=== PATIENT | female | born 1980 | race Caucasian/White ===

== ENCOUNTER 2017-08-28 13:23 | Emergency (ER) | payer BC, OTHER ==
[2017-08-28 13:56] VITALS: BP 156/102; PULSE 75; TEMP 97.9; BMI 35.2
[2017-08-28 14:32] LABS: BASO % 0.6 % (0-2.0); EOS % 0.2 % (0-4.5); HEMATOCRIT 37.7 % (32.4-45.2); HEMOGLOBIN 12.3 GM/dl (10.7-15.3); LYMPH % 16.4 % (8-40); MCH 26.4 pg (25.7-33.7); MCHC 32.8 g/dl (32.0-36.0); MEAN CELL VOLUME 80.5 fl (80-96); MEAN PLT VOLUME 8.3 fl (7.5-11.1); MONO % 6.6 % (3.8-10.2); NEUT % 76.2 % (42.8-82.8); PLATELET COUNT 274 K/MM3 (134-434); RBC 4.68 M/mm3 (3.60-5.2); RDW 14.2 % (11.6-15.6); WHITE BLOOD COUNT 7.3 K/mm3 (4.0-10.8)
--- NOTE | 2017-08-28 14:37 | PDOC ---
History of Present Illness - General Chief Complaint: Pain Stated Complaint: ABD PAIN Time Seen by Provider: 08/28/17 14:36 - History of Present Illness Initial Comments: 08/28/17 17:25 Chief complaint: Abdominal pain History of present illness: Patient complains of epigastric pain for about 1 week, worse for the last 2 days. Mild nausea, but no vomiting. Normal bowel movements. She is tolerating by mouth fluids but her appetite is decreased. She has a gastric band which is been in place for 7 years and is followed by Dr. Camacho, who sends her in for evaluation of slippage of the band. Review of systems: As above. In addition, no hematemesis melena or bloody stool. No chest pain, shortness of breath, visual or focal neurologic symptoms, urinary tract symptoms. She is having some spotting which is a first bleeding since delivery of her baby 2 months ago. Past medical history: Gastric band 7 years ago. No other abdominal surgery or GI illnesses. 3 para 3, 2-month-old baby. Social/family history reviewed and noncontributory Physical exam: Alert and oriented well-developed well-nourished no acute distress cooperative Afebrile, vital signs normal No pallor or icterus. PERRLA, ENT clear Neck supple without bruit mass or nodes Chest clear CV regular without murmur rub or gallop Abdomen nondistended. Bowel sounds normal. Soft without mass or organomegaly. There is mild tenderness to deep palpation in the epigastrium and right upper quadrant. Toribio sign is negative. There is no guarding or rebound Neurological intact Extremities no CCE Skin clear, no rash, adequate turgor and wet mucous membranes Impression: Viral gastroenteritis versus dyspepsia/peptic ulcer disease versus gallbladder disease versus slippage of the gastric band Plan: As requested by her surgeon, flat plate the abdomen and CT, with further evaluation and treatment depending on results. Past History - Past Medical History Allergies/Adverse Reactions: Allergies Allergy/AdvReac Type Severity Reaction Status Date / Time No Known Allergies Allergy Verified 08/28/17 13:50 Home Medications: Ambulatory Orders Acetaminophen W/ Codeine #3 [Tylenol # 3] 1 - 2 combo PO Q4H PRN #20 tablet MDD 8 08/28/17 Amox-Tr/K Cl [Augmentin 875-125mg Tablet -] 1 tab PO BID #14 tablet 03/21/18 COPD: No - Surgical History Gastric Stapling: Yes (LAPBAND) - Suicide/Smoking/Psychosocial Hx Smoking History: Never smoked Have you smoked in the past 12 months: No Information on smoking cessation initiated: No Hx Alcohol Use: No Drug/Substance Use Hx: No Substance Use Type: None *Physical Exam - Vital Signs Last Vital Signs Temp Pulse Resp BP Pulse Ox 97.9 F 75 20 156/102 99 08/28/17 13:24 08/28/17 13:24 08/28/17 13:24 08/28/17 13:24 08/28/17 13:24 ED Treatment Course - LABORATORY CBC & Chemistry Diagram: 08/28/17 14:13 08/28/17 14:14 - RADIOLOGY Radiology Studies Ordered: Category Date Time Status ABDOMEN-KUB FLAT PLATE [RAD] Stat Radiology 08/28/17 14:09 Ordered Progress Note - Progress Note Progress Note: Patient remains afebrile, clinically and hemodynamically stable, in no significant pain. White count is normal. LFTs and bilirubin are normal. Abdominal exam: Soft without mass or organomegaly. Mild tenderness epigastrium and right upper quadrant unchanged. No guarding or rebound. No Toribio sign Discussed CT findings with her surgeon . He agrees that the likely etiology of her pain is acute cholecystitis. She does not appear to be toxic or septic. She will be managed as an outpatient with antibiotics and analgesics and he will discuss elective cholecystectomy. Patient fully ambulatory and in no distress upon discharge with her to follow-up as directed. She states that she will return to the ER as directed if her symptoms worsen. *DC/Admit/Observation/Transfer Diagnosis at time of Disposition: Cholecystitis - Discharge Dispostion Disposition: HOME Condition at time of disposition: Stable Admit: No - Prescriptions Prescriptions: Acetaminophen W/ Codeine #3 [Tylenol # 3] 1 - 2 combo PO Q4H PRN #20 tablet MDD 8 PRN Reason: Pain Amox-Tr/K Cl [Augmentin 875-125mg Tablet -] 1 tab PO BID #14 tablet - Referrals Referrals: Brian Kendrick [Staff Physician] - 3 days - Patient Instructions Printed Discharge Instructions: DI for Cholecystitis Additional Instructions: Return to the emergency room if symptoms worsen. Especially if there is increased pain, vomiting, fever or chills There is also blood in your urine which is probably from spotting. The urine culture was sent and takes 2 days for results. If there is any sign of infection , he will need further treatment. However, the medication the ER taking for your gallbladder should be effective against any urinary tract infection that may be present. - Post Discharge Activity
[2017-08-28] MEDS ORDERED: FAMOTIDINE IV 20 MG/12 ML VIAL IVPUSH ONE (14:42)
[2017-08-28] MEDS ORDERED: KETOROLAC TROMETHAMINE 30 MG/1 ML VIAL IVPUSH ONE (14:42)
[2017-08-28] MEDS ORDERED: SODIUM CHLORIDE 1,000 ML IV STA (14:43)
[2017-08-28] MEDS ORDERED: KETOROLAC TROMETHAMINE 30 MG/1 ML VIAL ONE (14:48)
[2017-08-28] MEDS ORDERED: FAMOTIDINE 20 MG/50 ML IVPB 20 MG/50 ML MG IVPB ONE (14:49)
[2017-08-28 14:54] LABS: ALBUMIN 3.9 g/dl (3.5-5.0); ALK PHOS 82 U/L (32-92); ANION GAP 3 (8-16); BILIRUBIN,TOTAL 0.5 mg/dl (0.2-1.0); BLOOD UREA NITROGEN 9 mg/dl (7-18); CHLORIDE 104 mmol/L (98-107); CO2 26 mmol/L (22-28); GLUCOSE,RANDOM 105 mg/dl (74-106); POTASSIUM 4.2 mmol/L (3.5-5.1); SGOT/AST 31 U/L (10-42); SGPT/ALT 40 U/L (10-40); SODIUM 133 mmol/L (136-145); TOT PROT 6.9 g/dl (6.4-8.3)
[2017-08-28 15:21] LABS: URINE APPEARANCE Cloudy; URINE BILIRUBIN 1+ (NEGATIVE); URINE GLUCOSE (UA) Negative (NEGATIVE); URINE KETONE 2+ (NEGATIVE); URINE NITRITE Negative (NEGATIVE)
[2017-08-28 15:23] LABS: HCG,QUALITATIVE URINE NEGATIVE; URINE BLOOD 3+ (NEGATIVE); URINE LEUK ESTERASE TRACE (NEGATIVE); URINE PROTEIN 2+ (NEGATIVE)
[2017-08-28 15:24] LABS: URINE COLOR YELLOW
[2017-08-28 15:29] LABS: CREATININE < 0.8 mg/dl (0.6-1.3)
[2017-08-28 17:05] LABS: URINE RBC 15-20 /hpf (0-3)
[2017-08-28 17:06] LABS: EPI CELLS FEW /HPF; URINE BACTERIA FEW /hpf (NEGATIVE)
--- NOTE | 2017-08-29 02:47 | PDOC ---
*Physical Exam - Vital Signs Last Vital Signs Temp Pulse Resp BP Pulse Ox 97.9 F 75 20 156/102 99 08/28/17 13:24 08/28/17 13:24 08/28/17 13:24 08/28/17 13:24 08/28/17 13:24 ED Treatment Course - LABORATORY CBC & Chemistry Diagram: 08/28/17 14:13 08/28/17 14:14 - ADDITIONAL ORDERS Additional order review: Laboratory Results 08/28/17 08/28/17 08/28/17 14:14 14:14 14:14 Sodium 133 L Potassium 4.2 Chloride 104 Carbon Dioxide 26 Anion Gap 3 L BUN 9 Creatinine < 0.8 Creat Clearance w eGFR > 60 Random Glucose 105 Lactic Acid 1.1 Calcium 9.0 Total Bilirubin 0.5 AST 31 ALT 40 Alkaline Phosphatase 82 Total Protein 6.9 Albumin 3.9 Urine Color Yellow Urine Appearance Cloudy Urine pH 7.0 Ur Specific [place] 1.025 Urine Protein 2+ H Urine Glucose (UA) Negative Urine Ketones 2+ H Urine Blood 3+ H Urine Nitrite Negative Urine Bilirubin 1+ H Urine Urobilinogen 1.0 Ur Leukocyte Esterase Trace H Urine RBC 15-20 Urine WBC 8-10 Ur Epithelial Cells Few Urine Bacteria Few Urine HCG, Qual Negative 08/28/17 14:13 RBC 4.68 MCV 80.5 MCHC 32.8 RDW 14.2 MPV 8.3 Neutrophils % 76.2 Lymphocytes % 16.4 Monocytes % 6.6 Eosinophils % 0.2 Basophils % 0.6 - Medications Given in the ED: ED Medications Discontinued Medications Generic Name Dose Route Start Last Admin Trade Name Sathya PRN Reason Stop Dose Admin Famotidine 20 mg in 12 mls @ 144 mls/hr 08/28/17 14:42 08/28/17 14:52 Pepcid 20 Mg/12 Ml Push IVPUSH 08/28/17 14:46 144 mls/hr ONCE ONE Administration Sodium Chloride 1,000 mls @ 1,000 mls/hr 08/28/17 14:43 08/28/17 14:47 Normal Saline - IV 08/28/17 15:42 1,000 mls/hr ASDIR STA Administration Ketorolac Tromethamine 30 mg 08/28/17 14:42 08/28/17 14:53 Toradol Injection - IVPUSH 08/28/17 14:43 30 mg ONCE ONE Administration Medical Decision Making - Medical Decision Making 08/29/17 02:45 I received a call from this patient because she was unable to fill her prescriptions at the pharmacy She requested they be sent to [facility] prescriptions re ordered I called to patient to confirm correct pharmacy *DC/Admit/Observation/Transfer Diagnosis at time of Disposition: Cholecystitis - Discharge Dispostion Disposition: HOME Condition at time of disposition: Stable - Prescriptions Prescriptions: Acetaminophen W/ Codeine #3 [Tylenol # 3] 1 - 2 combo PO Q4H PRN #20 tablet MDD 8 PRN Reason: Pain Acetaminophen W/ Codeine #3 [Tylenol # 3 -] 2 tab PO Q6H PRN #20 tablet MDD 8 PRN Reason: Pain Amox-Tr/K Cl [Augmentin 875-125mg Tablet -] 1 tab PO BID #14 tablet Amoxicillin/Potassium Clav [Augmentin 875-125 Tablet] 1 each PO BID #14 tablet - Referrals Referrals: Brian Kendrick [Staff Physician] - 3 days - Patient Instructions Printed Discharge Instructions: DI for Cholecystitis Additional Instructions: Return to the emergency room if symptoms worsen. Especially if there is increased pain, vomiting, fever or chills There is also blood in your urine which is probably from spotting. The urine culture was sent and takes 2 days for results. If there is any sign of infection , he will need further treatment. However, the medication the ER taking for your gallbladder should be effective against any urinary tract infection that may be present. - Post Discharge Activity
== END 2017-08-28 18:41 | disposition home or self-care (01) ==
LOC: FER 13:23
PROC: 3E033GC Introduction of Other Therapeutic Substance into Peripheral Vein, Percutaneous Approach (ICD-10-PCS; principal; 2017-08-28)
PROC: 3E0333Z Introduction of Anti-inflammatory into Peripheral Vein, Percutaneous Approach (ICD-10-PCS; 2017-08-28)
PROC: 3E0337Z Introduction of Electrolytic and Water Balance Substance into Peripheral Vein, Percutaneous Approach (ICD-10-PCS; 2017-08-28)
DX: K81.9 Cholecystitis, unspecified (principal); Z98.84 Bariatric surgery status
CPT/HCPCS: 36415; 74018-TC-FY; 74177-TC; 80053; 81003; 81015; 83605; 84703; 85025; 87086; 99283-25; J7030